=== PATIENT | female | born 1970 | race African-American/Black ===

== ENCOUNTER 2017-07-07 16:38 | Emergency (ER) | payer MEDICARE, MEDICAID ==
[~2017-07-07] VITALS: Ht 167.6 cm; Wt 120.0 kg
[2017-07-07 17:23] VITALS: BP 151/71
== END 2017-07-07 19:20 | disposition left against medical advice (07) ==
LOC: ER 17:38
DX: Z53.21 Procedure and treatment not carried out due to patient leaving prior to being seen by health care provider (principal)